=== PATIENT | female | born 1990 | race Caucasian/White ===

== ENCOUNTER 2019-08-02 16:34 | Emergency (ER) | payer SELFPAY ==
[~2019-08-02] VITALS: Ht 175.3 cm; Wt 108.9 kg
[~2019-08-02 16:34] MED LIST: HYDR-4011 PO; NITR-58 PO; TAMS-14 PO
[2019-08-02 16:40] VITALS: Ht 175.3 cm; Wt 108.9 kg
[2019-08-02] MEDS ORDERED: ONDANSETRON 4 MG INJ IV STA (17:01)
[2019-08-02] MEDS ORDERED: morphine 2 MG INJ IV STA (17:01)
[2019-08-02] MEDS ORDERED: KETOROLAC 30 MG INJ IV STA (18:28)
[2019-08-02 21:25] VITALS: BP 111/70; PULSE 71; RESP 20
== END 2019-08-02 21:25 | disposition home or self-care (01) ==
LOC: FTE 16:34
DX: N20.0 Calculus of kidney (principal); E87.6 Hypokalemia
CPT/HCPCS: 36415; 74176; 76705; 76830; 76856; 80053; 81001; 81025; 83690; 85025; 96374; 96375; 99285; J1885; J2270; J2405